=== PATIENT | male | born 1985 | race African-American/Black ===

== ENCOUNTER 2016-12-31 16:08 | Day surgery (SDC) | payer OTHER ==
[~2016-12-31] VITALS: Ht 182.9 cm; Wt 91.5 kg
[~2016-12-31 16:08] MED LIST: OMEP20CA16 PO
[2016-12-31] MEDS ORDERED: RANI300T PO (16:46)
[2016-12-31 17:02] VITALS: BP 131/93; PULSE 78; RESP 16
[2016-12-31] MEDS ORDERED: LIDOCAINE 4% SOLUTION 50 ML BTL ONE (17:04)
[2016-12-31] MEDS ORDERED: MIDAZOLAM 1 MG/ML 2 ML INJ ONE ×2 (17:29)
[2016-12-31] MEDS ORDERED: FENTAnyl 50 MCG/ML VIAL ONE (17:29)
--- NOTE | 2016-12-31 17:49 | GILP ---
DATE OF PROCEDURE: 12/31/2016 PROCEDURE: Esophagogastroduodenoscopy. SURGEON: Harvey Phillip MD PREOPERATIVE DIAGNOSIS: The patient presenting with history of chronic heartburn unresponsive to ro utine therapy. Rule out reflux esophagitis, rule out Nuno's esophagus. POSTOPERATIVE DIAGNOSES: 1. Reflux esophagitis. 2. Ulcer noted just above the GE junction. 3. Mild diffuse gastritis. DESCRIPTION OF PROCEDURE: After the informed written consent was obtained, the patient was asked to lie in the left lateral position. Intravenous anesthesia was given which included 3 mg Versed and 75 mcg of fentanyl. When the patient became somnolent, the Olympus video upper endoscope was introd uced into the oropharynx, then into the esophagus. About a 4 mm ulcer noted just above the GE junct ion and linear erosions were also noted just above the GE junction indicating Rudyard classifica tion B of reflux esophagitis. Multiple biopsies were obtained after taking the photographs. Scope at this time was advanced into the stomach. Stomach showed evidence of diffuse erythema in a salt a nd pepper type of appearance. Biopsy was done from the antrum, the lesser curvature and the fundus. The scope at this time was advanced into the duodenum. Duodenum appeared normal up to the end of the third portion. Scope at this time was withdrawn, no additional abnormalities detected and the p rocedure was terminated. PLAN: Recommend wait for the pathology report and recommend to increase the omeprazole to 40 mg p.o . b.i.d. Dictated By: HARVEY PHILLIP MD NC/NTS Conf#: [id number] DID#: [id number] CC: HARVEY PHILLIP MD; HARINDER THOMAS MD;*EndCC*
[2016-12-31 17:52] VITALS: BP 120/78; PULSE 74; RESP 12
== END 2016-12-31 19:07 | disposition home or self-care (01) ==
LOC: GIL 16:08
PROVIDERS: ATTEND Internal Medicine Gastroenterology
DX: K21.0 Gastro-esophageal reflux disease with esophagitis (principal); K29.60 Other gastritis without bleeding
CPT/HCPCS: 43239; 88305; 88313; J2250; J3010; Z7610